=== PATIENT | male | born 1970 | race Asian ===

== ENCOUNTER 2021-10-14 21:34 | Emergency (ER) | payer BC, OTHER ==
[~2021-10-14] VITALS: Ht 165.1 cm; Wt 74.8 kg
--- NOTE | 2021-10-14 22:08 | NUR ---
BIBS. DIARRHEA AND VOMMITING X 1400. SENT BY [facility]RGENT [facility]ARE FOR WBC 12.0. PATIENT ALERT AND OREINTED X3 AMBULATORY WITH NON LABORED BREATHING.
[2021-10-14] MEDS ORDERED: ONDANSETRON HCL/PF 4 MG/2 ML VIAL IVP ONE (22:30)
[2021-10-14] MEDS ORDERED: IV NS 0.9% 1,000 ML BAG IV ONE (22:30)
--- NOTE | 2021-10-14 22:30 | NUR ---
BLOOD COLLECTED AND SENT TO LAB
[2021-10-14] MEDS ORDERED: ONDANSETRON HCL/PF 4 MG/2 ML VIAL ONE (22:34)
--- NOTE | 2021-10-14 22:35 | NUR ---
EMT @ BEDSIDE FOR EKG
[2021-10-14 22:45] LABS: BASOPHILS % (AUTO) 0.2 % (0.0-2.0); EOSINOPHILS % (AUTO) 0.6 % (0.0-6.0); HEMATOCRIT 46 % (39-51); HEMOGLOBIN 15.4 g/dL (13.5-17.5); LYMPHOCYTES # (AUTO) 0.2 K/uL (0.8-4.8); MEAN CORPUSCULAR HGB CONC 34 g/dl (31.0-36.0); MEAN CORPUSCULAR VOLUME 90 fL (80-96); MONOCYTES # (AUTO) 0.2 K/uL (0.1-1.30); MONOCYTES % (AUTO) 2.2 % (2.0-12.0); NEUTROPHILS # (AUTO) 10.5 K/uL (1.8-8.9); PLATELET COUNT (AUTO) 235 K/uL (150-450); RED BLOOD CELL COUNT(AUTO) 5.08 MIL/uL (4.5-6.0); WHITE BLOOD COUNT (AUTO) 11.1 K/uL (4.3-11.0)
[2021-10-14 22:59] LABS: CALCIUM, SERUM 8.3 mg/dL (8.5-10.1); CREATININE 0.8 mg/dL (0.6-1.3); POTASSIUM 3.7 mmol/L (3.5-5.1)
[2021-10-14] MEDS ORDERED: ONDA4TAB5 PO (23:02)
[2021-10-14 23:13] LABS: BILIRUBIN,DIRECT 0.1 mg/dL (0.0-0.2); BILIRUBIN,TOTAL 0.6 mg/dL (0.2-1.0); TOTAL PROTEIN, SERUM 7.6 g/dL (6.4-8.2)
[2021-10-14 23:51] VITALS: BP 144/90
--- NOTE | 2021-10-14 23:51 | NUR ---
Patient discharged to home in stable condition. Written and verbal after care instructions given. Patient verbalizes understanding of instruction.
== END 2021-10-15 00:09 | disposition home or self-care (01) ==
LOC: ER 21:39
DX: R11.2 Nausea with vomiting, unspecified (principal); R19.7 Diarrhea, unspecified; Z79.899 Other long term (current) drug therapy; Z87.891 Personal history of nicotine dependence
CPT/HCPCS: 36415; 80048; 80076; 83690; 85025; 93005; 96361; 96374; 99284; J2405; J7030